=== PATIENT | male | born 1995 | race Caucasian/White ===

== ENCOUNTER 2019-04-19 01:59 | Emergency (ER) | payer OTHER ==
[~2019-04-19] VITALS: Ht 190.5 cm; Wt 75.0 kg
--- NOTE | 2019-04-19 02:28 | NUR ---
assessment made. PA at bedside.
[2019-04-19] MEDS ORDERED: DIPH,PERTUSS(ACELL),TET VAC/PF 0.5 ML IM-VACC ONE ×2 (02:30→02:49)
--- NOTE | 2019-04-19 02:30 | NUR ---
patient to CT scan.
--- NOTE | 2019-04-19 02:45 | NUR ---
back from CT scan. awaiting result.
--- NOTE | 2019-04-19 03:41 | NUR ---
re-evaluation done. patient discharged with instruction. verbalized understanding. dental referral provided.
[2019-04-19 03:42] VITALS: BP 129/78
== END 2019-04-19 03:45 | disposition home or self-care (01) ==
LOC: ED 03:39
DX: S02.5XXA Fracture of tooth (traumatic), initial encounter for closed fracture (principal); S00.33XA Contusion of nose, initial encounter; S09.90XA Unspecified injury of head, initial encounter; W01.0XXA Fall on same level from slipping, tripping and stumbling without subsequent striking against object, initial encounter; Y93.89 Activity, other specified; Y92.488 Other paved roadways as the place of occurrence of the external cause; Y99.8 Other external cause status
CPT/HCPCS: 70450; 70486; 72125; 90471; 90715; 99284